=== PATIENT | male | born 1985 | race Caucasian/White ===

== ENCOUNTER 2016-08-12 18:11 | Emergency (ER) | payer BC ==
[~2016-08-12] VITALS: Ht 170.2 cm; Wt 97.0 kg
[~2016-08-12 18:11] MED LIST: APIX5TAB PO; HYDR-3498 PO; LEVO500T72 PO; Vancomycin Iv Per Pharmacy XX
[2016-08-12 18:27] VITALS: Ht 170.2 cm; Wt 97.0 kg
[2016-08-12] MEDS ORDERED: VANCOMYCIN 1 GM (PMX) 250 ML IVPB SCH (19:30)
[2016-08-12] MEDS: KETOROLAC 30 MG INJ IV STA ×2 (19:37→20:14)
[2016-08-12 19:42] LABS: ADD SCAN DIFF NO
[2016-08-12 19:46] LABS: BASOPHILS % 0.3 % (0.0-2.0); EOSINOPHILS % 0.1 % (0.0-7.0); HEMATOCRIT 41.7 % (42.0-52.0); HEMOGLOBIN 13.6 g/dl (14.0-18.0); LYMPHOCYTES # 1.1 10^3/ul (0.8-2.9); MEAN CORPUSCULAR HEMOGLOBIN 25.9 pg (29.0-33.0); MEAN CORPUSCULAR HGB CONC 32.6 g/dl (32.0-37.0); MEAN CORPUSCULAR VOLUME 79.3 fl (82.0-101.0); MONOCYTE # 1.4 10^3/ul (0.3-0.9); MONOCYTES % 9.8 % (0.0-11.0); NEUTROPHIL # 11.6 10^3/ul (1.6-7.5); NEUTROPHILS % 81.2 % (39.0-77.0); PLATELET COUNT 340 10^3/UL (140-415); RED BLOOD COUNT 5.26 10^6/ul (4.70-6.10); RED CELL DISTRIBUTION WIDTH 12.6 % (11.5-14.5); WHITE BLOOD COUNT 14.2 10^3/ul (4.8-10.8)
[2016-08-12 20:04] LABS: ALBUMIN 4.9 g/dl (3.3-4.9)
[2016-08-12 20:05] LABS: POTASSIUM 3.7 mmol/L (3.5-5.1)
[2016-08-12 20:07] LABS: ALBUMIN/GLOBULIN RATIO 1.11; BILIRUBIN,INDIRECT 0.9 mg/dl (0-1.1); BILIRUBIN,TOTAL 0.9 mg/dl (0.2-1.3); TOTAL PROTEIN 9.3 g/dl (6.1-8.1)
[2016-08-12 20:08] LABS: CALCIUM 9.9 mg/dl (8.4-10.2)
[2016-08-12 20:28] LABS: C-REACTIVE PROTEIN 14.8 mg/dl (0.0-0.9)
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
[2016-08-12] MEDS ORDERED: PIPER-TAZO 3.375 GM IV (PMX) 100 ML IVPB ONE (21:30)
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
[2016-08-12] MEDS ORDERED: BACTDS PO (21:39)
[2016-08-12] MEDS ORDERED: CEPH-443 PO (21:39)
[2016-08-12] MEDS ORDERED: ONDANSETRON 4 MG INJ IV PRN (22:00)
[2016-08-12] MEDS ORDERED: ACETAMINOPHEN 325 MG TAB PO PRN (22:00)
[2016-08-13] MEDS ORDERED: OXYC-279 PO (19:01)
[2016-08-13] MEDS ORDERED: IBUP-1542 PO (19:01)
== END 2016-08-12 21:48 | disposition left against medical advice (07) ==
LOC: FTE 18:11
DX: M86.8X6 Other osteomyelitis, lower leg (principal)
CPT/HCPCS: 36415; 73590; 80053; 85025; 85651; 86140; 87040; 96374; 96375; 99284; J1885; J2543; J3370

== ENCOUNTER 2016-08-13 16:15 | Emergency (ER) | payer BC ==
[~2016-08-13] VITALS: Ht 170.2 cm; Wt 100.0 kg
[~2016-08-13 16:15] MED LIST changes: +BACTDS PO; +CEPH-443 PO
[2016-08-13 16:18] VITALS: Ht 170.2 cm; Wt 100.0 kg
[2016-08-13] MEDS ORDERED: OXYCODONE/ACETAMINOPHEN (5/325) TAB PO ONE (19:00)
[2016-08-13] MEDS ORDERED: CEFTRIAXONE 1 GM INJ IM ONE (19:00)
[2016-08-13] MEDS ORDERED: IBUP-1542 PO (19:01)
[2016-08-13] MEDS ORDERED: OXYC-279 PO (19:01)
[2016-08-13] MEDS ORDERED: LIDOCAINE 1% (MDV) 20 ML INJ SC ONE (19:30)
[2016-08-13] MEDS ORDERED: IBUPROFEN 600 MG TAB PO ONE (19:30)
[2016-08-13 19:49] VITALS: BP 117/68; PULSE 105; RESP 16; TEMP 98.6
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
== END 2016-08-13 19:50 | disposition home or self-care (01) ==
LOC: FTE 16:15
DX: L03.115 Cellulitis of right lower limb (principal); E66.9 Obesity, unspecified; Z68.34 Body mass index [BMI] 34.0-34.9, adult; Z87.891 Personal history of nicotine dependence
CPT/HCPCS: J0696; Z7610; 96372